=== PATIENT | male | born 1955 | race Caucasian/White ===

== ENCOUNTER 2018-04-22 19:33 | Emergency (ER) | payer OTHER ==
[~2018-04-22] VITALS: Ht 165.1 cm; Wt 77.8 kg
[2018-04-22] MEDS ORDERED: IV NORMAL SALINE 1000ML BAG 1,000 ML IV SCH (20:37)
--- NOTE | 2018-04-22 20:46 | PHYS DOC ---
Past Medical History Past Medical History: CVA, Diabetes-Type II, High Cholesterol, Hypertension Past Surgical History: Tonsillectomy Alcohol Use: Rarely Drug Use: None Adult General Chief Complaint Chief Complaint: SWALLOWED FORIEGN BODY HPI HPI Patient is a 62-year-old male who presents to the emergency department for evaluation. He states that just prior to arrival, he was chewing a piece of steak, and he states he swallowed it, as he treated as best he could, and he states he feels that it got stuck in the lower part of his throat. He points to his sternal notch as the place where he feels the foreign bodies lodged. He denies any shortness of breath. He states he had an episode about 6 years ago similar to this, but states he was able to cough up the piece of chicken that time without having an endoscopy. He has never had an upper endoscopy before. He states he did have a stroke about 6 years ago, prior to his initial episode, and states he feels that he has not fully been swallowing as well since that time, but he has not had any other episodes of food impaction other than these 2 episodes. He is not able to tolerate any liquids, and a couple of water which I administered the patient is immediately regurgitated. Review of Systems Review of Systems Constitutional: Denies fever or chills [] Eyes: Denies change in visual acuity, redness, or eye pain [] HENT: Denies nasal congestion or sore throat [] Respiratory: Denies cough or shortness of breath [] Cardiovascular: The patient denies any shortness of breath, chest pain, palpitations, or orthopnea [] GI: Denies abdominal pain, bloody stools or diarrhea [] : Denies dysuria or hematuria [] Musculoskeletal: Denies back pain or joint pain [] Integument: Denies rash or skin lesions [] Neurologic: Denies headache, focal weakness or sensory changes [] Endocrine: Denies polyuria or polydipsia [] All other systems were reviewed and found to be within normal limits, except as documented in this note. Current Medications Current Medications Current Medications Medications (Trade) Dose Ordered Sig/Edenilson Start Time Stop Time Status Last Admin Dose Admin Sodium Chloride 1,000 ml @ 100 mls/hr Q10H 04/22/18 20:37 04/23/18 06:36 04/22/18 20:54 100 MLS/HR Allergies Allergies Allergies Coded Allergies Type Severity Reaction Last Updated Verified Penicillins Allergy Intermediate 04/22/18 Yes Physical Exam Physical Exam PHYSICAL EXAM: CONSTITUTIONAL: Well developed, well nourished HEAD: normocephalic, atraumatic EENT: PERRL, EOMI. Conjunctivae normal color, sclerae non-icteric; moist mucous membranes. The oropharynx is nonerythematous. There is no visualized foreign body in the posterior pharynx. The larynx is nontender. There is no stridor. NECK: Supple, non-tender; no meningismus. LUNGS: Lungs CTA, breathing even and unlabored. Normal air movement. HEART: Regular rate and rhythm, no murmur CHEST: No deformity; non-tender ABDOMEN: The abdomen is soft, and non-tender, no masses or bruits. EXTREM: Normal ROM; no deformity, no calf tenderness. Normal pulses palpable in all extremities. There is no pedal edema. SKIN: No rash; no diaphoresis NEURO: Alert; normal speech and cognition; CN's grossly intact; strength grossly intact without focal deficit. BACK: No CVA TTP. Current Patient Data Vital Signs Vital Signs Date Time Temp Pulse Resp B/P (MAP) Pulse Ox O2 Delivery O2 Flow Rate FiO2 04/22/18 20:22 98.0 100 18 208/95 (132) 98 Room Air 98.0 Lab Values Laboratory Tests Test 04/22/18 20:50 White Blood Count 5.2 x10^3/uL (4.0-11.0) Red Blood Count 4.99 x10^6/uL (4.30-5.70) Hemoglobin 14.9 g/dL (13.0-17.5) Hematocrit 42.9 % (39.0-53.0) Mean Corpuscular Volume 86 fL (79-100) Mean Corpuscular Hemoglobin 30 pg (25-35) Mean Corpuscular Hemoglobin Concent 35 g/dL (31-37) Red Cell Distribution Width 13.1 % (11.5-14.5) Platelet Count 285 x10^3/uL (140-400) Neutrophils (%) (Auto) 64 % (31-73) Lymphocytes (%) (Auto) 21 % (24-48) L Monocytes (%) (Auto) 8 % (0-9) Eosinophils (%) (Auto) 6 % (0-3) H Basophils (%) (Auto) 1 % (0-3) Neutrophils # (Auto) 3.3 x10^3uL (1.8-7.7) Lymphocytes # (Auto) 1.1 x10^3/uL (1.0-4.8) Monocytes # (Auto) 0.4 x10^3/uL (0.0-1.1) Eosinophils # (Auto) 0.3 x10^3/uL (0.0-0.7) Basophils # (Auto) 0.1 x10^3/uL (0.0-0.2) Sodium Level 140 mmol/L (136-145) Potassium Level 3.9 mmol/L (3.5-5.1) Chloride Level 101 mmol/L (98-107) Carbon Dioxide Level 30 mmol/L (21-32) Anion Gap 9 (6-14) Blood Urea Nitrogen 23 mg/dL (8-26) Creatinine 1.1 mg/dL (0.7-1.3) Estimated GFR (Cockcroft-Gault) 67.6 Glucose Level 181 mg/dL (70-99) H Calcium Level 9.9 mg/dL (8.5-10.1) Laboratory Tests 04/22/18 20:50 Laboratory Tests 04/22/18 20:50 EKG EKG [Normal sinus rhythm at a rate of 96 bpm, left axis deviation, normal intervals. There are no acute ischemic ST/T changes. There are inferior Q waves suggestive of a remote inferior infarction.] Radiology/Procedures Radiology/Procedures [] Course & Med Decision Making Course & Med Decision Making 8:45 PM: I spoke with Dr. Banegas, who will take the patient to the GI lab. Dragon Disclaimer Dragon Disclaimer This electronic medical record was generated, in whole or in part, using a voice recognition dictation system. Departure Departure Impression: Primary Impression: Obstruction of esophagus due to food impaction Disposition: ADMITTED INPATIENT Condition: STABLE Referrals: RADHA MCKINNEY DO (PCP) MINERVA MOORE MD Apr 22, 2018 20:46
[2018-04-22 21:03] LABS: BASO # 0.1 x10^3/uL (0.0-0.2); BASO % 1 % (0-3); EOS # 0.3 x10^3/uL (0.0-0.7); EOS % 6 % (0-3); HEMATOCRIT 42.9 % (39.0-53.0); HEMOGLOBIN 14.9 g/dL (13.0-17.5); LYMPH # 1.1 x10^3/uL (1.0-4.8); LYMPH % 21 % (24-48); MEAN CORPUSCULAR HEMOGLOBIN 30 pg (25-35); MEAN CORPUSCULAR HGB CONC 35 g/dL (31-37); MEAN CORPUSCULAR VOLUME 86 fL (79-100); MONO # 0.4 x10^3/uL (0.0-1.1); MONO % 8 % (0-9); NEUT # 3.3 x10^3uL (1.8-7.7); NEUT % 64 % (31-73); PLATELET COUNT 285 x10^3/uL (140-400); RED BLOOD COUNT 4.99 x10^6/uL (4.30-5.70); RED CELL DISTRIBUTION WIDTH 13.1 % (11.5-14.5); WHITE BLOOD COUNT 5.2 x10^3/uL (4.0-11.0)
[2018-04-22 21:12] LABS: CALCIUM 9.9 mg/dL (8.5-10.1); CREATININE 1.1 mg/dL (0.7-1.3); GFR 67.6; POTASSIUM 3.9 mmol/L (3.5-5.1)
[2018-04-22] MEDS ORDERED: PROPOFOL 20 ML IV ONE (21:30)
--- NOTE | 2018-04-22 21:51 | PDOC1 ---
History and Physical Date of Admission Date of Admission DATE: 04/22/18 TIME: 21:46 Source Source: Patient History of Present Illness History of Present Illness 62 y/o male with impacted food bolus, historically steak. Feels may have moved some distally, but still sensation. Prior episode 6 years ago required EGD; no f/u endoscopy done. Denies HB or dysphagia otherwise. No PUD, GB, liver or pancreatic history. No tobacco use. Occasional alcohol or NSAID use. Daily ASA 81mg. No D, C, H, M. Wt/appetite OK. No N, V. GIFH negative. No prior colonoscopy. Past Medical History Cardiovascular: HTN CENTRAL NERVOUS SYSTEM: CVA Endocrine: Diabetes Past Surgical History Past Surgical History: Tonsillectomy Family History Family History: Diabetes, Hypertension Social History Smoke: No ALCOHOL: occassional Drugs: None Current Problem List Problem List Problems Medical Problems: (1) Obstruction of esophagus due to food impaction Status: Acute Current Medications Current Medications Current Medications Sodium Chloride 1,000 ml @ 100 mls/hr Q10H IV Last administered on 04/22/18at 20:54; Start 04/22/18 at 20:37; Stop 04/23/18 at 06:36 Propofol 20 ml @ As Directed STK-MED ONCE IV ; Start 04/22/18 at 21:30; Stop at 21:31; Status DC Allergies Allergies: Coded Allergies: Penicillins (Verified Allergy, Intermediate, 04/22/18) ROS Review of System Otherwise negative. Physical Exam General: Alert, Oriented X3, Cooperative, No acute distress HEENT: PERRLA, EOMI Lungs: Clear to auscultation Heart: S1S2, RRR, no gallops, no murmurs Abdomen: Normal bowel sounds, Soft, No tenderness, No hepatosplenomegaly, No masses Rectal Exam: not examined Extremities: No cyanosis, No edema Skin: No significant lesion Neuro: Normal speech, Strength at 5/5 X4 ext, Normal tone, Sensation intact, Cranial nerves 3-12 NL, Reflexes 2+ Psych/Mental Status: Mental status NL, Mood NL Vitals Vitals Vital Signs Date Time Temp Pulse Resp B/P (MAP) Pulse Ox O2 Delivery O2 Flow Rate FiO2 04/22/18 20:22 98.0 100 18 208/95 (132) 98 Room Air 98.0 Labs Labs Laboratory Tests Test 04/22/18 20:50 White Blood Count 5.2 x10^3/uL (4.0-11.0) Red Blood Count 4.99 x10^6/uL (4.30-5.70) Hemoglobin 14.9 g/dL (13.0-17.5) Hematocrit 42.9 % (39.0-53.0) Mean Corpuscular Volume 86 fL (79-100) Mean Corpuscular Hemoglobin 30 pg (25-35) Mean Corpuscular Hemoglobin Concent 35 g/dL (31-37) Red Cell Distribution Width 13.1 % (11.5-14.5) Platelet Count 285 x10^3/uL (140-400) Neutrophils (%) (Auto) 64 % (31-73) Lymphocytes (%) (Auto) 21 % (24-48) Monocytes (%) (Auto) 8 % (0-9) Eosinophils (%) (Auto) 6 % (0-3) Basophils (%) (Auto) 1 % (0-3) Neutrophils # (Auto) 3.3 x10^3uL (1.8-7.7) Lymphocytes # (Auto) 1.1 x10^3/uL (1.0-4.8) Monocytes # (Auto) 0.4 x10^3/uL (0.0-1.1) Eosinophils # (Auto) 0.3 x10^3/uL (0.0-0.7) Basophils # (Auto) 0.1 x10^3/uL (0.0-0.2) Sodium Level 140 mmol/L (136-145) Potassium Level 3.9 mmol/L (3.5-5.1) Chloride Level 101 mmol/L (98-107) Carbon Dioxide Level 30 mmol/L (21-32) Anion Gap 9 (6-14) Blood Urea Nitrogen 23 mg/dL (8-26) Creatinine 1.1 mg/dL (0.7-1.3) Estimated GFR (Cockcroft-Gault) 67.6 Glucose Level 181 mg/dL (70-99) Calcium Level 9.9 mg/dL (8.5-10.1) Laboratory Tests Test 04/22/18 20:50 White Blood Count 5.2 x10^3/uL (4.0-11.0) Red Blood Count 4.99 x10^6/uL (4.30-5.70) Hemoglobin 14.9 g/dL (13.0-17.5) Hematocrit 42.9 % (39.0-53.0) Mean Corpuscular Volume 86 fL (79-100) Mean Corpuscular Hemoglobin 30 pg (25-35) Mean Corpuscular Hemoglobin Concent 35 g/dL (31-37) Red Cell Distribution Width 13.1 % (11.5-14.5) Platelet Count 285 x10^3/uL (140-400) Neutrophils (%) (Auto) 64 % (31-73) Lymphocytes (%) (Auto) 21 % (24-48) Monocytes (%) (Auto) 8 % (0-9) Eosinophils (%) (Auto) 6 % (0-3) Basophils (%) (Auto) 1 % (0-3) Neutrophils # (Auto) 3.3 x10^3uL (1.8-7.7) Lymphocytes # (Auto) 1.1 x10^3/uL (1.0-4.8) Monocytes # (Auto) 0.4 x10^3/uL (0.0-1.1) Eosinophils # (Auto) 0.3 x10^3/uL (0.0-0.7) Basophils # (Auto) 0.1 x10^3/uL (0.0-0.2) Sodium Level 140 mmol/L (136-145) Potassium Level 3.9 mmol/L (3.5-5.1) Chloride Level 101 mmol/L (98-107) Carbon Dioxide Level 30 mmol/L (21-32) Anion Gap 9 (6-14) Blood Urea Nitrogen 23 mg/dL (8-26) Creatinine 1.1 mg/dL (0.7-1.3) Estimated GFR (Cockcroft-Gault) 67.6 Glucose Level 181 mg/dL (70-99) Calcium Level 9.9 mg/dL (8.5-10.1) VTE Prophylaxis Ordered VTE Prophylaxis Devices: No VTE Pharmacological Prophylaxi: No Assessment/Plan Assessment/Plan IMP: Impacted food bolus. PLAN: EGD. ALBA SCHWARZ MD Apr 22, 2018 21:51
[2018-04-22] MEDS ORDERED: LISI-334 PO (22:01)
[2018-04-22] MEDS ORDERED: METF10007 PO (22:01)
[2018-04-22] MEDS ORDERED: GLIM4TAB2 PO (22:01)
[2018-04-22] MEDS ORDERED: AMLO10TA6 PO (22:01)
[2018-04-22] MEDS ORDERED: CLON0.1T PO (22:01)
[2018-04-22] MEDS ORDERED: METO25TA2 PO (22:01)
[2018-04-22] MEDS ORDERED: ASPI-630 PO (22:01)
[2018-04-22] MEDS ORDERED: ATOR20TA58 PO (22:01)
--- NOTE | 2018-04-22 22:13 | PDOC4 ---
PROCEDURE Procedure EGD/FB Indication: impacted food bolus Meds: per anesthesia Findings: E--fluid/bits of food distally; really unable to visualize bolus. Pushed into stomach with pressure on scope. Under this what seemed to be stricture with fracture and minor bleeding during scope/food passage. G-fluid/food obscuring upper body. Cardia, fundus, lower body, antrum normal. D-Normal bulb. Tolerated well. IMP: Food bolus, resolved. Probable stricture underlying. REC: Liquids only, hold ASA for 48 hours. Will urge f/u re: re-endoscopy under better circumstances. CT chest stat; if OK, home. ALBA SCHWARZ MD Apr 22, 2018 22:12
[2018-04-22 22:29] VITALS: BP 122/58
--- NOTE | 2018-04-22 22:53 | RAD ---
PQRS Compliance Statement: One or more of the following individualized dose reduction techniques were utilized for this examination: 1. Automated exposure control 2. Adjustment of the mA and/or kV according to patient size 3. Use of iterative reconstruction technique CT chest without contrast April 22, 2018 INDICATION: Food bolus stuck in the throat status post EGD COMPARISON: None available. TECHNIQUE: Multiple axial CT images of the chest were obtained without intravenous contrast. Coronal and sagittal reformats are provided. FINDINGS: Thyroid gland is normal in appearance. There are no pathologically enlarged axillary extremities are hilar lymph nodes. Heart size is within normal limits. There is no pericardial effusion. Thoracic esophagus is normal in appearance. There is no pneumomediastinum. There are no pleural effusions. No pulmonary vascular congestion or pneumothorax. Lungs are clear. There is a 6 mm solid noncalcified pulmonary nodule at the left costophrenic angle. There is a 5 mm solid noncalcified pleura nodule in the right costophrenic angle. There are no suspicious osseous abnormalities. There is cholelithiasis. No adjacent plantar changes are identified. Calcification within the spleen may represent sequela prior granulomatous exposure. IMPRESSION: 1. No evidence for perforation status post EGD. No pneumomediastinum. 2. Cholelithiasis. 3. Solid noncalcified pulmonary nodules measuring 5 -6 mm. A follow-up chest CT in one year is recommended. Electronically signed by: Mallory Benson MD (04/22/2018 10:49 PM) [id number]
--- NOTE | 2018-04-22 22:55 | EKG ---
[facility] [address] [place] [id number] Test Date: 2018-04-22 Test Time: 21:12:38 Pat Name: AUSTEN BRENNER Department: Room: Gender: Male [employer] Manager: : [id number] Requested By: MINERVA MOORE Order Number: [id number] Reading MD: Andrea Mata Measurements Intervals [place] Rate: 96 P: 28 MI: 166 QRS: -20 QRSD: 86 T: 24 QT: 340 QTc: 430 Interpretive Statements SINUS RHYTHM LEFTWARD AXIS QRS(T) CONTOUR ABNORMALITY CONSISTENT WITH INFERIOR INFARCT PROBABLY OLD ABNORMAL ECG Electronically Signed On 04-23-2018 11:29:31 CDT by Andrea Mata
== END 2018-04-22 21:38 | disposition short-term general hospital (02) ==
LOC: ER 19:33
DX: T18.128A Food in esophagus causing other injury, initial encounter (principal); E78.00 Pure hypercholesterolemia, unspecified; E11.9 Type 2 diabetes mellitus without complications; I10 Essential (primary) hypertension; Z90.89 Acquired absence of other organs; Z86.73 Personal history of transient ischemic attack (TIA), and cerebral infarction without residual deficits; Z88.0 Allergy status to penicillin; X58.XXXA Exposure to other specified factors, initial encounter; Y93.89 Activity, other specified; Y92.89 Other specified places as the place of occurrence of the external cause; Y99.8 Other external cause status
CPT/HCPCS: 36415; 43235; 71250; 80048; 85025; 93005; 99285; J2704; J7030